=== PATIENT | female | born 1930 | race African-American/Black ===

== ENCOUNTER 2016-12-17 19:59 | Emergency (ER) | payer MEDICARE, MEDICAID ==
[2016-12-17] MEDS ORDERED: NORMAL SALINE 1000 ML 500 ML IV ONE (20:24)
--- NOTE | 2016-12-17 20:31 | ER Document Report ---
ED General - General Stated Complaint: FLU SYMPTOMS Mode of Arrival: Medic Information source: Patient, Relative, [facility] Records Notes: 85-year-old female with a history of hypertension presents via EMS for generalized weakness. Family states that patient has been feeling poorly for one day and has been very weak at home. EMS reported fever of 101.4 axillary. Family was unaware that patient was running a fever today. They state that she has had a mild cough but has not had any vomiting or diarrhea. In fact she has been constipated for the last 4 or 5 days. Patient states that she has had no dysuria. She states that she has no current pain. She just does not feel well. No known sick contacts or recent travel. TRAVEL OUTSIDE OF THE [place] IN LAST 30 DAYS: No - Related Data Allergies/Adverse Reactions: Penicillins Allergy (Verified 12/10/15 09:43) Sulfa (Sulfonamide Antibiotics) Allergy (Verified 12/10/15 09:43) aspirin [Aspirin] Adverse Reaction (Verified 12/10/15 09:43) Past Medical History - General Information source: Relative, [facility] Records - Social History Smoking Status: Unknown if Ever Smoked Family History: Reviewed & Not Pertinent - Past Medical History Cardiac Medical History: Reports: Hx Hypertension Renal/ Medical History: Reports: Hx Kidney Stones Musculoskeltal Medical History: Reports Hx Arthritis Past Surgical History: Reports: Hx Orthopedic Surgery - Immunizations Hx Diphtheria, Pertussis, Tetanus Vaccination: Yes Review of Systems - Review of Systems Notes: Review of symptoms limited secondary to clinical status. REVIEW OF SYSTEMS: CONSTITUTIONAL : Fever and chills and generalized weakness EENT: Denies eye, ear, throat, or mouth pain or symptoms. Denies nasal or sinus congestion. CARDIOVASCULAR: Denies chest pain. RESPIRATORY: Mild cough today as per history of present illness. Denies shortness of breath, difficulty breathing, or wheezing. GASTROINTESTINAL: Denies abdominal pain. Denies nausea, vomiting, or diarrhea. Patient has been constipated. GENITOURINARY: Denies difficulty urinating, painful urination, burning, frequency MUSCULOSKELETAL: Denies joint pain or swelling. SKIN: Denies rash or skin lesions. HEMATOLOGIC : Denies easy bruising or bleeding. LYMPHATIC: Denies swollen, enlarged glands. NEUROLOGICAL: Denies headache. PSYCHIATRIC: Denies anxiety or stress or depression. ALL OTHER SYSTEMS REVIEWED AND NEGATIVE. Physical Exam - Vital signs Vitals: Resp BP Pulse Ox 17 144/74 H 99 12/17/16 20:11 12/17/16 20:11 12/17/16 20:11 Vital signs per EMS: Temperature 101.4 axillary, pressure 148/96, heart rate 94 , respirations 16, pulse ox 100% on 2 L nasal cannula. - Notes Notes: PHYSICAL EXAMINATION: GENERAL: Frail, elderly, cachectic female who is ill-appearing. She is alert and conversant in a very soft voice. HEAD: Atraumatic, normocephalic. EYES: Pupils equal round and reactive to light, extraocular movements intact, sclera anicteric, conjunctiva are normal. ENT: nares patent, oropharynx clear without exudates. Mucous membranes somewhat tacky. NECK: Normal range of motion, supple LUNGS: Decreased bibasilar breath sounds with crackles noted in the right base. No wheezes HEART: Regular rate and rhythm without murmurs ABDOMEN: Soft, nontender, normoactive bowel sounds. No guarding, no rebound. No masses appreciated. EXTREMITIES: Normal range of motion, no pitting or edema. No cyanosis. NEUROLOGICAL: Cranial nerves grossly intact. Moves all 4 extremities and strength intact and symmetric bilaterally PSYCH: Normal mood, normal affect. SKIN: Warm, Dry, normal turgor, no rashes or lesions noted. Course - Re-evaluation Re-evalutation: 12/17/16 22:50 Patient labs are reassuring. Patient is reassessed and has normal vital signs. She is alert and conversant. Her family was in the room states that she is at her baseline mental status at this time. They state that she looks much better than she did earlier today. Patient tells me that she has no pain, she is breathing well, and she wants to go home. She does have caregivers with her 24 hours a day. Given her fever along with some mild cough will prescribe her doxycycline to cover for possible pneumonia, however her chest x-ray at this time is negative. Discussed with the patient's family that she needs to follow up with her primary care physician on Monday and they are agreeable to do so. Should return precautions were discussed. All questions answered. - Vital Signs Vital signs: Temp Pulse Resp BP Pulse Ox 97.8 F 16 138/67 H 96 12/17/16 23:12 12/17/16 23:00 12/17/16 23:00 12/17/16 23:00 - Laboratory Result Diagrams: 12/17/16 20:22 12/17/16 20:22 Laboratory results interpreted by me: 12/17/16 12/17/16 12/17/16 20:22 20:22 20:39 RBC 3.47 L Hgb 9.1 L Hct 29.1 L MCH 26.4 L MCHC 31.5 L RDW 16.9 H Seg Neutrophils % 82.9 H Lymphocytes % 8.4 L VBG pH Carbon Dioxide 31 H Glucose 128 H POC Glucose 125 H Albumin 2.8 L Urine Urobilinogen 12/17/16 12/17/16 20:40 20:55 RBC Hgb Hct MCH MCHC RDW Seg Neutrophils % Lymphocytes % VBG pH 7.45 H Carbon Dioxide Glucose POC Glucose Albumin Urine Urobilinogen 4.0 H Discharge - Discharge Clinical Impression: Febrile illness, acute, Cough, Influenza-like illness Anemia Qualifiers: Anemia type: unspecified type Qualified Code(s): D64.9 - Anemia, unspecified Condition: Stable Disposition: HOME, SELF-CARE Additional Instructions: FEVER: Fever is the body's reaction to infection. Fever can also occur with illnesses that create fever-producing substances in the body. By itself, fever is not harmful. It helps the body fight invading germs. We are more concerned with: (1) What's causing the fever? (2) How can we keep you more comfortable until the fever goes away? Early in an illness, symptoms are often so vague that a diagnosis can't be made. If the doctor hasn't identified a clear cause for your fever, you will probably develop new symptoms within the next two days. Contact the doctor if you develop severe worsening headache, rash, chest pain, cough with yellow or green sputum, difficulty breathing, abdominal pain, or other new symptoms. There is no reason to treat a fever if you're comfortable. If the fever is causing aches, headache, and fatigue, you can treat it with ibuprofen (Advil , Nuprin, etc) or acetaminophen (Tylenol). Follow the directions on the bottle. Get plenty of liquids (three quarts per day). Rest. Physical work or sports will raise the temperature higher and make you feel much worse. Dress lightly. If you're chilling, this means the temperature is trying to go higher. Take ibuprofen or acetaminophen. When you feel sweaty and "feverish" the temperature is coming down. If the fever doesn't go away within two days or if you become more ill, call the doctor or return at once for re-examination. VIRAL SYNDROME: The physician has diagnosed a likely viral infection. Viruses not only cause "colds," but can cause many different symptoms including generalized aching, fever, headache, cough, diarrhea, nausea, vomiting, and fatigue. The treatment, for the most part, is simply relief of symptoms. This means that antibiotics are usually not given. Rest, fluids, pain medications and, occasionally, medication for the specific symptoms that are most bothersome will be prescribed. Use good handwashing to avoid passing the virus to others. Shared toys should be cleaned with disinfectant. Clean the toilets, sinks, and counter surfaces in bathrooms. Launder clothing in hot water. Contact the physician if you develop any new or unusual symptoms such as severe headache, stiff neck, high fever, chest pain, productive cough, or shortness of breath. You should be rechecked if you don't see marked improvement within seven to 10 days. USE OF ACETAMINOPHEN (Tylenol): Acetaminophen may be taken for pain relief or fever control. It's much safer than aspirin, offering a wider range of "safe" dosages. It is safe during . Some brand names are Tylenol, Panadol, Datril, Anacin 3, Tempra, and Liquiprin. Acetaminophen can be repeated every four hours. The following are maximum recommended dosages: WEIGHT Dose Drops Elixir Chewable( 80mg) (LBS.) drprs=droppers tsp=teaspoon 6 40 mg 0.4 ml (1/2) 6-11 80 mg 0.8 ml (full) tsp 1 tab 12-16 120 mg 1 1/2 drprs 3/4 tsp 1 1/2 tabs 17-23 160 mg 2 drprs 1 tsp 2 tabs 24-30 240 mg 3 drprs 1 1/2 tsp 3 tabs 30-35 320 mg 2 tsp 4 tabs 36-41 360 mg 2 1/4 tsp 4 1/2 tabs 42-47 400 mg 2 1/2 tsp 5 tabs 48-53 480 mg 3 tsp 6 tabs 54-59 520 mg 3 1/4 tsp 6 1/2 tabs 60-64 560 mg 3 1/2 tsp 7 tabs 65-70 600 mg 3 3/4 tsp 7 1/2 tabs 71-76 640 mg 4 tsp 8 tabs 77-82 720 mg 4 1/2 tsp 9 tabs 83-88 800 mg 5 tsp 10 tabs >89 pounds or adults 650 mg to 900 mg Acetaminophen can be repeated every four hours. Maximum dose not to exceed 4000 mg a day. These maximum recommended dosages are slightly higher than the dosages written on the product container, but these dosages are very safe and below the toxic dosage for acetaminophen. FOLLOW-UP CARE: If you have been referred to a physician for follow-up care, call the physician s office for an appointment as you were instructed or within the next two days. If you experience worsening or a significant change in your symptoms, notify the physician immediately or return to the Emergency Department at any time for re-evaluation. Rest and drink fluids. Take your antibiotics as instructed. Please follow-up with your primary care physician on Monday. Return to the emergency department for any worsening symptoms or concerns. Prescriptions: Doxycycline Hyclate 100 mg PO BID #20 capsule Referrals: NATALIA CHANDRA, FRANCISCAC [Primary Care Provider] - Follow up as needed
[2016-12-17 20:38] LABS: ABSOLUTE LYMPHOCYTES (AUTO) 0.6 10^3/uL (0.5-4.7); ABSOLUTE MONOCYTES (AUTO) 0.5 10^3/uL (0.1-1.4); ABSOLUTE NEUT (AUTO) 5.6 10^3/uL (1.7-8.2); BASOPHILS % (AUTO) 0.5 % (0-2); EOSINOPHILS % (AUTO) 0.6 % (0-6); HEMATOCRIT 29.1 % (36.0-47.0); HEMOGLOBIN 9.1 g/dL (12.0-15.5); HGB HCT DIFFERENCE -1.8; LYMPHOCYTES % (AUTO) 8.4 % (13-45); MEAN CORPUSCULAR HEMOGLOBIN 26.4 pg (27.0-33.4); MEAN CORPUSCULAR HGB CONC 31.5 g/dL (32.0-36.0); MEAN CORPUSCULAR VOLUME 84 fl (80-97); MONOCYTES % (AUTO) 7.6 % (3-13); RED BLOOD COUNT 3.47 10^6/uL (3.72-5.28); RED CELL DISTRIBUTION WIDTH 16.9 % (11.5-14.0); SEGMENTED NEUTROPHILS % (AUTO) 82.9 % (42-78); WHITE BLOOD COUNT 6.7 10^3/uL (4.0-10.5)
[2016-12-17 20:46] LABS: PROTHROMBIN TIME 14.2 SEC (11.4-15.4)
[2016-12-17 20:51] LABS: VENOUS BLOOD BASE EXCESS 3.3 mmol/L; VENOUS BLOOD HCO3 27.7 mmol/L (20-32); VENOUS BLOOD PCO2 41.1 mmHg (35-63); VENOUS BLOOD PH 7.45 (7.30-7.42)
[2016-12-17 21:03] LABS: ALANINE AMINOTRANSFERASE 14 U/L (9-52); ALBUMIN 2.8 g/dL (3.5-5.0); ALKALINE PHOSPHATASE 72 U/L (38-126); ANION GAP 8 (5-19); ASPARTATE AMINO TRANSFERASE 30 U/L (14-36); BILIRUBIN,TOTAL 0.6 mg/dL (0.2-1.3); BLOOD UREA NITROGEN 13 mg/dL (7-20); CALCIUM 9.5 mg/dL (8.4-10.2); CARBON DIOXIDE 31 mmol/L (22-30); CHLORIDE 100 mmol/L (98-107); CREATININE RESULT 0.62 mg/dL (0.52-1.25); GLUCOSE 128 mg/dL (75-110); POTASSIUM 3.7 mmol/L (3.6-5.0); SODIUM 138.6 mmol/L (137-145); TOTAL PROTEIN 6.6 g/dL (6.3-8.2)
[2016-12-17 21:15] LABS: APPEARANCE,URINE CLEAR; BILIRUBIN,URINE NEGATIVE (NEGATIVE); GLUCOSE, URINE NEGATIVE (NEGATIVE); KETONES,URINE NEGATIVE (NEGATIVE); LEUKOCYTE ESTERASE,URINE NEGATIVE (NEGATIVE); NITRITE,URINE NEGATIVE (NEGATIVE); PROTEIN,URINE NEGATIVE (NEGATIVE); URINE SPECIFIC GRAVITY 1.013
[2016-12-17 23:08] VITALS: BP 138/67
--- NOTE | 2016-12-18 17:41 | EKG REPORT ---
SEVERITY:- ABNORMAL ECG - SINUS RHYTHM CONSIDER LEFT VENTRICULAR HYPERTROPHY : Confirmed by: Dayna Montes MD 18-Dec-2016 17:41:04
== END 2016-12-17 23:18 | disposition home or self-care (01) ==
LOC: ER 19:59
DX: R05 Cough (principal); R50.9 Fever, unspecified; R53.1 Weakness; D64.9 Anemia, unspecified; I10 Essential (primary) hypertension; Z88.0 Allergy status to penicillin; Z88.2 Allergy status to sulfonamides; Z88.6 Allergy status to analgesic agent; Z87.442 Personal history of urinary calculi
CPT/HCPCS: 36415; 51701; 71010; 80053; 81001; 82803; 82962; 83605; 85025; 85610; 87040; 87086; 87804; 93005; 93010; 99284

== ENCOUNTER 2017-01-29 10:28 | Emergency (ER) | payer MEDICARE ==
--- NOTE | 2017-01-29 10:51 | EKG REPORT ---
SEVERITY:- BORDERLINE ECG - SINUS RHYTHM BORDERLINE T ABNORMALITIES, ANT-LAT LEADS : Confirmed by: Natasha Garcia 29-Jan-2017 10:50:04
--- NOTE | 2017-01-29 11:02 | ER Document Report ---
ED General - General Chief Complaint: Hand Pain Stated Complaint: WEAKNESS, HAND SWELLING Mode of Arrival: Medic Information source: Patient, Relative, [facility] Personnel Notes: 86 yr old female with dementia presents with fmaily with ocncerns of right hand swelling over the past week. 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 family notes she has progressively been weaker over the past year. pt diagnosed with uti recently, pt not taking her cipro TRAVEL OUTSIDE OF THE [place] IN LAST 30 DAYS: No - HPI Onset: Just prior to arrival Onset/Duration: Sudden Quality of pain: No pain Severity: None Pain Level: Denies Associated symptoms: None Exacerbated by: Denies Relieved by: Denies Similar symptoms previously: Yes Recently seen / treated by doctor: Yes - Related Data Allergies/Adverse Reactions: Penicillins Allergy (Verified 12/10/15 09:43) Sulfa (Sulfonamide Antibiotics) Allergy (Verified 12/10/15 09:43) aspirin [Aspirin] Adverse Reaction (Verified 12/10/15 09:43) Past Medical History - Social History Smoking Status: Never Smoker Cigarette use (# per day): No Chew tobacco use (# tins/day): No Smoking Education Provided: No Family History: Reviewed & Not Pertinent - Past Medical History Cardiac Medical History: Reports: Hx Hypertension Renal/ Medical History: Reports: Hx Kidney Stones. Denies: Hx Peritoneal Dialysis GI Medical History: Reports: Hx Gastroesophageal Reflux Disease Musculoskeltal Medical History: Reports Hx Arthritis Past Surgical History: Reports: Hx Orthopedic Surgery - Immunizations Hx Diphtheria, Pertussis, Tetanus Vaccination: Yes Review of Systems - Review of Systems Notes: REVIEW OF SYSTEMS: CONSTITUTIONAL : Denies fever, chills, or sweats. Denies recent illness. EENT: Denies eye, ear, throat, or mouth pain or symptoms. Denies nasal or sinus congestion or discharge. Denies throat, tongue, or mouth swelling or difficulty swallowing. CARDIOVASCULAR: Denies chest pain. Denies palpitations or racing or irregular heart beat. Denies ankle edema. RESPIRATORY: Denies cough, cold, or chest congestion. Denies shortness of breath, difficulty breathing, or wheezing. GASTROINTESTINAL: Denies abdominal pain or distention. Denies nausea, vomiting , or diarrhea. Denies blood in vomitus, stools, or per rectum. Denies black, tarry stools. Denies constipation. GENITOURINARY: Denies difficulty urinating, painful urination, burning, frequency, blood in urine, or discharge. FEMALE GENITOURINARY: Denies vaginal bleeding, heavy or abnormal periods, irregular periods. Denies vaginal discharge or odor. MUSCULOSKELETAL: admit to right hand swelling SKIN: Denies rash, lesions or sores. HEMATOLOGIC : Denies easy bruising or bleeding. LYMPHATIC: Denies swollen, enlarged glands. NEUROLOGICAL: weakness chronic PSYCHIATRIC: Denies anxiety or stress. Denies depression, suicidal ideation, or homicidal ideation. ALL OTHER SYSTEMS REVIEWED AND NEGATIVE. Dictation was performed using [employer] voice recognition software PHYSICAL EXAMINATION: GENERAL: Cachectic female no acute distress HEAD: Atraumatic, normocephalic. EYES: Pupils equal round and reactive to light, extraocular movements intact, conjunctiva are normal. ENT: Nares patent, oropharynx clear without exudates. Moist mucous membranes. NECK: Normal range of motion, supple without lymphadenopathy LUNGS: Breath sounds clear to auscultation bilaterally and equal. No wheezes rales or rhonchi. HEART: Regular rate and rhythm without murmurs ABDOMEN: Soft, nontender, nondistended abdomen. No guarding, no rebound. No masses appreciated. Female : deferred Musculoskeletal: Right-sided deficits right hand mild edema no erythema NEUROLOGICAL: Right-sided deficits chronic SKIN: stage 2 decub Physical Exam - Vital signs Vitals: Temp Pulse Resp BP Pulse Ox 98.1 F 85 18 140/69 H 95 01/29/17 10:47 01/29/17 10:47 01/29/17 10:47 01/29/17 10:47 01/29/17 10:47 Course - Re-evaluation Re-evalutation: 01/29/17 11:02 01/29/17 12:52 Doppler was negative, lab work note no significant abnormality patient is on antibiotics and family requests ciprofloxacin liquid. I will write a prescription. Otherwise patient looks well is in no distress. I will discharge back to home After performing a Medical Screening Examination, I estimate there is LOW risk for ACUTE CORONARY SYNDROME, RESPIRATORY FAILURE, SEPSIS OR MENINGITIS, thus I consider the discharge disposition reasonable. The patients family and I have discussed the diagnosis and risks, and we agree with discharging home with close follow-up. We also discussed returning to the Emergency Department immediately if new or worsening symptoms occur. We have discussed the symptoms which are most concerning (e.g., changing or worsening pain, trouble swallowing or breathing, neck stiffness, fever) that necessitate immediate return. - Vital Signs Vital signs: Temp Pulse Resp BP Pulse Ox 98.1 F 85 18 140/69 H 95 01/29/17 10:47 01/29/17 10:47 01/29/17 10:47 01/29/17 10:47 01/29/17 10:47 - Laboratory Result Diagrams: 01/29/17 11:30 01/29/17 11:30 Laboratory results interpreted by me: 01/29/17 01/29/17 01/29/17 11:30 11:30 11:30 Hgb 10.0 L Hct 31.2 L MCH 26.6 L RDW 18.1 H Plt Count 566 H Seg Neutrophils % 80.1 H Lymphocytes % 11.4 L VBG HCO3 34.4 H Chloride 97 L Direct Bilirubin 0.5 H AST 41 H Albumin 2.7 L Urine Ketones Ur Leukocyte Esterase 01/29/17 11:59 Hgb Hct MCH RDW Plt Count Seg Neutrophils % Lymphocytes % VBG HCO3 Chloride Direct Bilirubin AST Albumin Urine Ketones 20 H Ur Leukocyte Esterase SMALL H - Diagnostic Test Radiology reviewed: Image reviewed, Reports reviewed Discharge - Discharge Clinical Impression: Swelling of right hand Decubital ulcer Qualifiers: Pressure ulcer location: sacral region Pressure ulcer stage: stage 2 Qualified Code(s): L89.152 - Pressure ulcer of sacral region, stage 2 Condition: Stable Disposition: HOME, SELF-CARE Additional Instructions: Follow up with your physician tomorrow for further care or return to the ED IMMEDIATELY if symptoms worsen or new concerns occur. If you cannot afford to follow up with your primary care physician a list of low cost clinics have been provided at the end of your discharge papers as well. Referrals: LINO ALEXANDER MD [Primary Care Provider] - Follow up tomorrow
[2017-01-29 11:50] LABS: VENOUS BLOOD BASE EXCESS 7.2 mmol/L; VENOUS BLOOD HCO3 34.4 mmol/L (20-32); VENOUS BLOOD PCO2 60.8 mmHg (35-63); VENOUS BLOOD PH 7.37 (7.30-7.42)
[2017-01-29 11:53] LABS: ABSOLUTE LYMPHOCYTES (AUTO) 0.8 10^3/uL (0.5-4.7); ABSOLUTE MONOCYTES (AUTO) 0.5 10^3/uL (0.1-1.4); ABSOLUTE NEUT (AUTO) 5.5 10^3/uL (1.7-8.2); BASOPHILS % (AUTO) 0.6 % (0-2); EOSINOPHILS % (AUTO) 0.2 % (0-6); HEMATOCRIT 31.2 % (36.0-47.0); HGB HCT DIFFERENCE -1.2; LYMPHOCYTES % (AUTO) 11.4 % (13-45); MEAN CORPUSCULAR HEMOGLOBIN 26.6 pg (27.0-33.4); MEAN CORPUSCULAR HGB CONC 32.1 g/dL (32.0-36.0); MEAN CORPUSCULAR VOLUME 83 fl (80-97); MONOCYTES % (AUTO) 7.7 % (3-13); RED BLOOD COUNT 3.77 10^6/uL (3.72-5.28); RED CELL DISTRIBUTION WIDTH 18.1 % (11.5-14.0); SEGMENTED NEUTROPHILS % (AUTO) 80.1 % (42-78); WHITE BLOOD COUNT 6.9 10^3/uL (4.0-10.5)
[2017-01-29 12:02] LABS: PROTHROMBIN TIME 13.5 SEC (11.4-15.4)
[2017-01-29 12:07] LABS: ALANINE AMINOTRANSFERASE 25 U/L (9-52); ALBUMIN 2.7 g/dL (3.5-5.0); ALKALINE PHOSPHATASE 85 U/L (38-126); ANION GAP 12 (5-19); ASPARTATE AMINO TRANSFERASE 41 U/L (14-36); BILIRUBIN,DIRECT 0.5 mg/dL (0.0-0.4); BILIRUBIN,TOTAL 0.7 mg/dL (0.2-1.3); BLOOD UREA NITROGEN 14 mg/dL (7-20); CALCIUM 10.2 mg/dL (8.4-10.2); CARBON DIOXIDE 29 mmol/L (22-30); CHLORIDE 97 mmol/L (98-107); CREATININE RESULT 0.53 mg/dL (0.52-1.25); GLUCOSE 103 mg/dL (75-110); POTASSIUM 3.7 mmol/L (3.6-5.0); SODIUM 138.1 mmol/L (137-145); TOTAL PROTEIN 6.7 g/dL (6.3-8.2)
[2017-01-29 12:14] LABS: APPEARANCE,URINE SLIGHTLY-CLOUDY; BILIRUBIN,URINE NEGATIVE (NEGATIVE); CALCIUM OXALATE CRYSTALS,URINE RARE /HPF; GLUCOSE, URINE NEGATIVE (NEGATIVE); KETONES,URINE 20 mg/dL (NEGATIVE); LEUKOCYTE ESTERASE,URINE SMALL (NEGATIVE); NITRITE,URINE NEGATIVE (NEGATIVE); PROTEIN,URINE NEGATIVE (NEGATIVE); URINE SPECIFIC GRAVITY 1.016; UROBILINOGEN,URINE NEGATIVE mg/dL (<2.0)
[2017-01-29 13:38] VITALS: BP 140/75
== END 2017-01-29 13:41 | disposition home or self-care (01) ==
LOC: ER 10:28
DX: M79.89 Other specified soft tissue disorders (principal); L89.152 Pressure ulcer of sacral region, stage 2; I69.351 Hemiplegia and hemiparesis following cerebral infarction affecting right dominant side; I10 Essential (primary) hypertension; Z88.0 Allergy status to penicillin; Z88.2 Allergy status to sulfonamides
CPT/HCPCS: 36415; 51702; 71010; 80053; 81001; 82803; 83605; 85025; 85610; 87040; 87086; 93005; 93010; 93971; 99285

== ENCOUNTER 2017-02-18 17:13 | Emergency (ER) | payer MEDICARE, MEDICAID ==
[2017-02-18 20:05] LABS: APPEARANCE,URINE SLIGHTLY-CLOUDY; BILIRUBIN,URINE NEGATIVE (NEGATIVE); GLUCOSE, URINE NEGATIVE (NEGATIVE); KETONES,URINE 20 mg/dL (NEGATIVE); LEUKOCYTE ESTERASE,URINE TRACE (NEGATIVE); NITRITE,URINE NEGATIVE (NEGATIVE); PROTEIN,URINE NEGATIVE (NEGATIVE); UROBILINOGEN,URINE NEGATIVE mg/dL (<2.0)
[2017-02-18 20:34] LABS: ABSOLUTE BASOPHILS # (AUTO) 0.1 10^3/uL (0.0-0.2); ABSOLUTE NEUT (AUTO) 8.1 10^3/uL (1.7-8.2); BASOPHILS % (AUTO) 1.2 % (0-2); EOSINOPHILS % (AUTO) 0.1 % (0-6); HEMATOCRIT 30.5 % (36.0-47.0); HEMOGLOBIN 9.3 g/dL (12.0-15.5); HGB HCT DIFFERENCE -2.6; LYMPHOCYTES % (AUTO) 9.5 % (13-45); MEAN CORPUSCULAR HEMOGLOBIN 25.5 pg (27.0-33.4); MEAN CORPUSCULAR HGB CONC 30.3 g/dL (32.0-36.0); MEAN CORPUSCULAR VOLUME 84 fl (80-97); RED BLOOD COUNT 3.63 10^6/uL (3.72-5.28); RED CELL DISTRIBUTION WIDTH 18.5 % (11.5-14.0); SEGMENTED NEUTROPHILS % (AUTO) 79.2 % (42-78); WHITE BLOOD COUNT 10.2 10^3/uL (4.0-10.5)
--- NOTE | 2017-02-18 20:50 | ER Document Report ---
ED General - General Chief Complaint: Altered Mental Status Stated Complaint: ALTERED MENTAL STATUS Mode of Arrival: Wheelchair Information source: Relative Notes: This is an 86-year-old female with multiple medical problems who lives with her family and presents via EMS for an episode earlier of altered mental status. Family states that when patient awoke from a nap earlier this afternoon, she was not as responsive as usual. The family are poor historians as well and they are unsure how long this episode of decreased responsiveness this lasted. However, upon arrival to the ER patient is alert and at her baseline mental status. Family states that she has not had any recent fevers or chills. She has not been coughing and congested. She has not had vomiting or diarrhea. They are concerned that perhaps she has a urinary tract infection as she has had similar episodes with those in the past. Patient denies any complaints at this time. She says she has no pain and that she feels well. TRAVEL OUTSIDE OF THE [place] IN LAST 30 DAYS: No - Related Data Allergies/Adverse Reactions: Penicillins Allergy (Verified 12/10/15 09:43) Sulfa (Sulfonamide Antibiotics) Allergy (Verified 12/10/15 09:43) aspirin [Aspirin] Adverse Reaction (Verified 12/10/15 09:43) Past Medical History - General Information source: Relative - Social History Smoking Status: Never Smoker Chew tobacco use (# tins/day): No Frequency of alcohol use: None Drug Abuse: None Family History: Reviewed & Not Pertinent - Past Medical History Cardiac Medical History: Reports: Hx Hypercholesterolemia, Hx Hypertension Renal/ Medical History: Reports: Hx Kidney Stones. Denies: Hx Peritoneal Dialysis GI Medical History: Reports: Hx Gastroesophageal Reflux Disease Musculoskeltal Medical History: Reports Hx Arthritis Past Surgical History: Reports: Hx Orthopedic Surgery - R hip - Immunizations Hx Diphtheria, Pertussis, Tetanus Vaccination: Yes Review of Systems - Review of Systems Constitutional: See HPI. denies: Chills, Fever EENT: No symptoms reported Cardiovascular: No symptoms reported. denies: Chest pain, Dyspnea Respiratory: No symptoms reported. denies: Cough, Hurts to breathe, Short of breath Gastrointestinal: No symptoms reported. denies: Abdomen distended, Abdominal pain, Diarrhea, Vomiting Genitourinary: No symptoms reported Musculoskeletal: No symptoms reported Skin: Other - pressure sore on buttocks that is being cared for by home health Neurological/Psychological: See HPI Physical Exam - Vital signs Vitals: Pulse Ox 92 02/18/17 17:20 - Notes Notes: PHYSICAL EXAMINATION: GENERAL: Thin, cachetic, chronically ill appearing elderly female who is alert and interactive, nods her head to answer questions, smiles HEAD: Atraumatic, normocephalic. EYES: Pupils equal round and reactive to light, extraocular movements intact, sclera anicteric, conjunctiva are normal. ENT: nares patent, oropharynx clear without exudates. mucous membranes tacky NECK: Normal range of motion, supple without lymphadenopathy LUNGS: Breath sounds clear to auscultation bilaterally and equal. No wheezes rales or rhonchi. HEART: Regular rate and rhythm without murmurs ABDOMEN: Soft, nontender, normoactive bowel sounds. No guarding, no rebound. No masses appreciated. EXTREMITIES: Normal range of motion, no pitting or edema. NEUROLOGICAL: Cranial nerves grossly intact. Weakness to RUE which is baseline for patient per family. Otherwise grossly intact. PSYCH: Normal mood, normal affect. SKIN: Warm, Dry, normal turgor, no rashes or lesions noted. Course - Re-evaluation Re-evalutation: 02/18/17 22:00 Patient has been evaluated multiple times in the emergency department. She has remained at her baseline mental status. She is alert and able to nod her head yes or no and sometimes will whisper answers to my questions. She denies any pain. She wanted like to go home. Her family is here at the bedside and they' re comfortable taking her home. We discussed that at this time her labs and exam initially that she is dehydrated. She is given IV fluids in the ER and she will follow closely with her primary care physician. Strict return precautions were discussed. Family is very comfortable with this plan and would like to take the patient home tonight. - Vital Signs Vital signs: Temp Pulse Resp BP Pulse Ox 10 L 145/70 H 100 02/18/17 20:01 02/18/17 20:01 02/18/17 20:01 - Laboratory Result Diagrams: 02/18/17 20:08 02/18/17 21:10 Laboratory results interpreted by me: 02/18/17 02/18/17 02/18/17 19:55 20:08 21:10 RBC 3.63 L Hgb 9.3 L Hct 30.5 L MCH 25.5 L MCHC 30.3 L RDW 18.5 H Seg Neutrophils % 79.2 H Lymphocytes % 9.5 L Carbon Dioxide 36 H BUN 24 H AST 38 H Creatine Kinase < 20 L Total Protein 6.0 L Albumin 2.4 L Urine Ketones 20 H Ur Leukocyte Esterase TRACE H Discharge - Discharge Clinical Impression: Dehydration, Chronic anemia Condition: Stable Disposition: HOME, SELF-CARE Additional Instructions: Dehydration Dehydration can result from vomiting or diarrhea, fever, or decreased intake of fluids. If severe, hospitalization and intravenous fluids may be required. Most cases are treated at home with fluids by mouth. For the next 24 hours, drink lots of clear fluids. In mild cases, this can be soda pop or sports drinks. For more severe dehydration, the doctor may recommend special fluids such as Pedialyte or Lytren. Try to get three liters ( 3 quarts) of fluid per day. If vomiting occurs, continue to drink the fluids frequently (every 15 to 20 minutes), but in small amounts (one or two ounces). Depending on the type of dehydration, the doctor may prescribe antinausea medicine or potassium replacements. Call the doctor or return for re-examination if you become progressively weak, vomit repeatedly, or have other new symptoms. As discussed, follow up with your PCP next week. Keep your appointment with Oncology Monday as scheduled (for chronic anemia). Encourage oral fluids at home. Return to the ER for fevers, chest pain, breathing trouble, vomiting, or any worsening symptoms or concerns.
[2017-02-18 21:45] LABS: ALANINE AMINOTRANSFERASE 15 U/L (9-52); ALBUMIN 2.4 g/dL (3.5-5.0); ALKALINE PHOSPHATASE 84 U/L (38-126); ANION GAP 8 (5-19); ASPARTATE AMINO TRANSFERASE 38 U/L (14-36); BILIRUBIN,DIRECT 0.3 mg/dL (0.0-0.4); BILIRUBIN,TOTAL 0.6 mg/dL (0.2-1.3); BLOOD UREA NITROGEN 24 mg/dL (7-20); CALCIUM 10.2 mg/dL (8.4-10.2); CARBON DIOXIDE 36 mmol/L (22-30); CHLORIDE 98 mmol/L (98-107); GLUCOSE 88 mg/dL (75-110); POTASSIUM 3.8 mmol/L (3.6-5.0); SODIUM 141.6 mmol/L (137-145)
[2017-02-18 21:46] LABS: CREATINE KINASE < 20 U/L (30-135)
[2017-02-18] MEDS ORDERED: NORMAL SALINE 500 ML IV ONE (21:52)
[2017-02-18 22:48] VITALS: BP 144/69
--- NOTE | 2017-02-19 10:19 | EKG REPORT ---
SEVERITY:- ABNORMAL ECG - SINUS RHYTHM ATRIAL PREMATURE COMPLEX CONSIDER LEFT VENTRICULAR HYPERTROPHY : Confirmed by: Natasha Garcia 19-Feb-2017 10:18:34
== END 2017-02-18 22:50 | disposition home or self-care (01) ==
LOC: ER 17:13
DX: E86.0 Dehydration (principal); D64.9 Anemia, unspecified; R41.82 Altered mental status, unspecified; R05 Cough; R09.81 Nasal congestion
CPT/HCPCS: 36415; 51701; 70450; 71010; 80053; 81001; 82550; 85025; 93005; 93010; 99285

== ENCOUNTER 2017-02-26 09:20 | Emergency (ER) | payer MEDICARE, MEDICAID ==
--- NOTE | 2017-02-26 10:38 | ER Document Report ---
ED General - General Chief Complaint: Urinary Problem Stated Complaint: URINATION CONCERNS Mode of Arrival: Wheelchair Information source: Patient, Relative Notes: 86 yr old female presents with families concerns of decreased urination. Pt last urinated monday night. family denies any fevers or chills, states she has been eating and drinking well. TRAVEL OUTSIDE OF THE [place] IN LAST 30 DAYS: No - HPI Onset: Other - 2 days Onset/Duration: Persistent Quality of pain: No pain Severity: Mild Pain Level: Denies Associated symptoms: Other Exacerbated by: Denies Relieved by: Denies Similar symptoms previously: Yes Recently seen / treated by doctor: Yes - Related Data Allergies/Adverse Reactions: Penicillins Allergy (Verified 02/26/17 09:31) Sulfa (Sulfonamide Antibiotics) Allergy (Verified 02/26/17 09:31) aspirin [Aspirin] Adverse Reaction (Verified 02/26/17 09:31) Past Medical History - Social History Smoking Status: Former Smoker Cigarette use (# per day): No Chew tobacco use (# tins/day): No Smoking Education Provided: No Frequency of alcohol use: None Drug Abuse: None Family History: Reviewed & Not Pertinent Patient has suicidal ideation: No Patient has homicidal ideation: No - Past Medical History Cardiac Medical History: Reports: Hx Hypercholesterolemia, Hx Hypertension Renal/ Medical History: Reports: Hx Kidney Stones. Denies: Hx Peritoneal Dialysis GI Medical History: Reports: Hx Gastroesophageal Reflux Disease Musculoskeltal Medical History: Reports Hx Arthritis Past Surgical History: Reports: Hx Orthopedic Surgery - R hip, L hip - Immunizations Hx Diphtheria, Pertussis, Tetanus Vaccination: Yes Review of Systems - Review of Systems Notes: PHYSICAL EXAMINATION: GENERAL: Cachectic elderly female no significant distress HEAD: Atraumatic, normocephalic. EYES: Pupils equal round and reactive to light, extraocular movements intact, conjunctiva are normal. ENT: Nares patent, oropharynx clear without exudates. Moist mucous membranes. NECK: Normal range of motion, supple without lymphadenopathy LUNGS: Breath sounds clear to auscultation bilaterally and equal. No wheezes rales or rhonchi. HEART: Regular rate and rhythm without murmurs ABDOMEN: Soft, nontender, nondistended abdomen. No guarding, no rebound. No masses appreciated. Female : deferred Musculoskeletal: Normal range of motion, no pitting or edema. No cyanosis. NEUROLOGICAL: Cranial nerves grossly intact. Normal speech, normal gait. Normal sensory, motor exams PSYCH: Normal mood, normal affect. SKIN: Warm, Dry, normal turgor, no rashes or lesions noted. Physical Exam - Vital signs Vitals: Pulse Resp BP 101 H 16 93/76 L 02/26/17 09:27 02/26/17 09:27 02/26/17 09:27 Course - Re-evaluation Re-evalutation: 02/26/17 16:25 A Vines was placed 200 mL were removed, no obvious sign of infection. Patient vital signs otherwise stable. Her B1 is noted to be elevated, I believe she is dehydrated this would be the cause of why she has not been urinating well. Family denies any vomiting of blood or dark stools I have explained to the family patient's poor prognosis they state the understand. I will treat her with IV fluids hydrate her and follow up with primary care physician tomorrow Family's very happy with this plan and appreciative of the care After performing a Medical Screening Examination, I estimate there is LOW risk for ACUTE CORONARY SYNDROME, RESPIRATORY FAILURE, SEPSIS OR MENINGITIS, thus I consider the discharge disposition reasonable. I have reevaluated this patient multiple times and no significant life threatening changes are noted. The patient and her family and I have discussed the diagnosis and risks, and we agree with discharging home with close follow-up. We also discussed returning to the Emergency Department immediately if new or worsening symptoms occur. We have discussed the symptoms which are most concerning (e.g., changing or worsening pain, trouble swallowing or breathing, neck stiffness, fever) that necessitate immediate return. - Vital Signs Vital signs: Temp Pulse Resp BP Pulse Ox 97.3 F 91 11 L 146/84 H 100 02/26/17 09:35 02/26/17 10:50 02/26/17 15:02 02/26/17 15:02 02/26/17 10:50 - Laboratory Result Diagrams: 02/26/17 10:10 02/26/17 10:10 Laboratory results interpreted by me: 02/26/17 02/26/17 10:10 10:10 RBC 3.13 L Hgb 8.3 L Hct 26.8 L MCH 26.5 L MCHC 31.0 L RDW 19.1 H Seg Neuts % (Manual) 85 H Lymphocytes % (Manual) 7 L Carbon Dioxide 32 H BUN 33 H Calcium 10.5 H Direct Bilirubin 0.7 H AST 38 H Albumin 2.4 L Discharge - Discharge Clinical Impression: Dehydration Anemia Qualifiers: Anemia type: unspecified type Qualified Code(s): D64.9 - Anemia, unspecified Condition: Stable Disposition: HOME, SELF-CARE Instructions: Dehydration ([facility]) Additional Instructions: Follow up with your physician tomorrow for further care or return to the ED IMMEDIATELY if symptoms worsen or new concerns occur. If you cannot afford to follow up with your primary care physician a list of low cost clinics have been provided at the end of your discharge papers as well.
[2017-02-26 10:52] LABS: HEMATOCRIT 26.8 % (36.0-47.0); HEMOGLOBIN 8.3 g/dL (12.0-15.5); HGB HCT DIFFERENCE -1.9; MEAN CORPUSCULAR HEMOGLOBIN 26.5 pg (27.0-33.4); MEAN CORPUSCULAR VOLUME 86 fl (80-97); RED BLOOD COUNT 3.13 10^6/uL (3.72-5.28); RED CELL DISTRIBUTION WIDTH 19.1 % (11.5-14.0); WHITE BLOOD COUNT 7.6 10^3/uL (4.0-10.5)
[2017-02-26 10:58] LABS: ALANINE AMINOTRANSFERASE 16 U/L (9-52); ALBUMIN 2.4 g/dL (3.5-5.0); ALKALINE PHOSPHATASE 98 U/L (38-126); ANION GAP 10 (5-19); ASPARTATE AMINO TRANSFERASE 38 U/L (14-36); BILIRUBIN,DIRECT 0.7 mg/dL (0.0-0.4); BILIRUBIN,TOTAL 0.9 mg/dL (0.2-1.3); BLOOD UREA NITROGEN 33 mg/dL (7-20); CALCIUM 10.5 mg/dL (8.4-10.2); CARBON DIOXIDE 32 mmol/L (22-30); CHLORIDE 99 mmol/L (98-107); GLUCOSE 87 mg/dL (75-110); POTASSIUM 3.9 mmol/L (3.6-5.0); SODIUM 140.8 mmol/L (137-145); TOTAL PROTEIN 6.4 g/dL (6.3-8.2)
[2017-02-26 11:06] LABS: APPEARANCE,URINE SLIGHTLY-CLOUDY; BILIRUBIN,URINE NEGATIVE (NEGATIVE); GLUCOSE, URINE NEGATIVE (NEGATIVE); KETONES,URINE NEGATIVE (NEGATIVE); LEUKOCYTE ESTERASE,URINE NEGATIVE (NEGATIVE); NITRITE,URINE NEGATIVE (NEGATIVE); PROTEIN,URINE NEGATIVE (NEGATIVE); UROBILINOGEN,URINE NEGATIVE mg/dL (<2.0)
[2017-02-26 11:10] LABS: BAND NEUTROPHILS % (MANUAL) 4 % (3-5); BASOPHILS % (MANUAL) 0 % (0-2); EOSINOPHILS % (MANUAL) 0 % (0-6); LYMPHOCYTES % (MANUAL) 7 % (13-45); TOTAL CELLS COUNTED 100
[2017-02-26 11:11] LABS: ANISOCYTOSIS 1+; HYPOCHROMASIA 1+; POIKILOCYTOSIS SLIGHT; ROULEAUX SLIGHT; TARGET CELLS SLIGHT
[2017-02-26] MEDS ORDERED: NORMAL SALINE 1000 ML 1,000 ML IV ONE (11:16)
[2017-02-26 15:41] VITALS: BP 146/84
== END 2017-02-26 15:57 | disposition home or self-care (01) ==
LOC: ER 09:20
DX: E86.0 Dehydration (principal); D64.9 Anemia, unspecified; I10 Essential (primary) hypertension; K21.9 Gastro-esophageal reflux disease without esophagitis; Z87.442 Personal history of urinary calculi; Z88.0 Allergy status to penicillin; Z88.2 Allergy status to sulfonamides; Z88.6 Allergy status to analgesic agent
CPT/HCPCS: 99284; 51702; 36415; 85025; 80053; 81001; J7030

== ENCOUNTER 2017-03-07 15:37 | Inpatient (IN) | payer MEDICARE, MEDICAID ==
--- NOTE | 2017-03-07 15:56 | ER Document Report ---
ED General - General Stated Complaint: WEAKNESS Time Seen by Provider: 03/07/17 15:50 Mode of Arrival: Medic Information source: Relative Cannot obtain history due to: Dementia Notes: Nonverbal TRAVEL OUTSIDE OF THE [place] IN LAST 30 DAYS: No - HPI Notes: 86-year-old female chronically ill with increasing weakness and decreasing by mouth intake over 1 month protest leave the last 2-3 days. They are waiting on hospice at home but the patient is not taking any by mouth medications or fluids except a minimal amount last urine output was yesterday evening. She has been chewing on her lower lip and it has been bleeding as well. The patient 's had no other complaints. She is bedbound and they're awaiting on a Elizabet lift. He noted no fevers. Patient appears confused and can give no further history otherwise. - Related Data Allergies/Adverse Reactions: Penicillins Allergy (Verified 02/26/17 09:31) Sulfa (Sulfonamide Antibiotics) Allergy (Verified 02/26/17 09:31) aspirin [Aspirin] Adverse Reaction (Verified 02/26/17 09:31) Past Medical History - Social History Smoking Status: Never Smoker Family History: Reviewed & Not Pertinent - Past Medical History Cardiac Medical History: Reports: Hx Hypercholesterolemia, Hx Hypertension Renal/ Medical History: Reports: Hx Kidney Stones. Denies: Hx Peritoneal Dialysis GI Medical History: Reports: Hx Gastroesophageal Reflux Disease Musculoskeltal Medical History: Reports Hx Arthritis Past Surgical History: Reports: Hx Orthopedic Surgery - R hip, L hip - Immunizations Hx Diphtheria, Pertussis, Tetanus Vaccination: Yes Review of Systems - Review of Systems -: Yes ROS unobtainable due to patient's medical condition - Otherwise as noted per family. Physical Exam - Notes Notes: GENERAL: VS as per nursing doc. extremely cachectic black female with mild increased work of breathing. HEAD: Atraumatic, normocephalic. EYES: Sunken eyes, ENT: Very dry mucosa with some bleeding of the lip and mucosa noted. It does not appear active at the moment.. NECK: No clear adenopathy LUNGS: Coarse with basilar crackles HEART: Regular rate and rhythm systolic murmur noted ABDOMEN: Soft, non-tender, scaphoid BACK: No CVA tenderness. EXTREMITIES: Muscular wasting. NEUROLOGICAL: Will not follow commands except for very weak grout pump operator, nothing obviously focal PSYCH: Nonverbal SKIN: Warm, dry,poor turgor, skin breakdown/decubiti noted Course - Re-evaluation Re-evalutation: 03/07/17 19:28 Patient chemistry showed some mild hypoglycemia and BUN/creatinine ratio consistent with some dehydration. We will continue hydration. She is fairly anemic but I do not see active source of bleeding. She has an extremely large sacral decubiti that probably could use some debridement. Her biggest problem is mostly failure to thrive as a reason for them to consider hospice. Urine does appear somewhat infected we will give her a dose of Rocephin. I'm waiting for the hospitalist to be available for call for admission. 03/07/17 19:49 I spoke with the daughter again who is making healthcare decisions and with the granddaughters in agreement and they continue to wish for the patient to be a full DO NOT RESUSCITATE/DO NOT INTUBATE and requesting patient be set up with hospice which they've been trying to do for a month but unable to apparently get everything set up. I spoke with Dr. Mckeon and he will be admitting the patient to the medical service - Laboratory Result Diagrams: 03/07/17 16:45 03/07/17 16:45 Laboratory results interpreted by me: 03/07/17 03/07/17 03/07/17 16:40 16:45 16:45 RBC 3.09 L Hgb 8.2 L Hct 26.3 L MCH 26.4 L MCHC 31.1 L RDW 19.0 H Seg Neuts % (Manual) 89 H Band Neutrophils % 1 L Lymphocytes % (Manual) 7 L Monocytes % (Manual) 2 L Carbon Dioxide 32 H BUN 34 H Glucose 74 L Calcium 10.6 H Direct Bilirubin 0.5 H AST 42 H Total Protein 6.0 L Albumin 2.3 L Urine Ketones TRACE H Ur Leukocyte Esterase SMALL H - Diagnostic Test Radiology reviewed: Image reviewed, Reports reviewed - Nonacute chest x-ray - EKG Interpretation by Me EKG shows normal: Sinus rhythm Rate: Normal - Heart rate 97 probably more likely a normal sinus rhythm with short MN interval and consideration for PACs, diffuse nonspecific T-wave abnormalities and low voltage noted Discharge - Discharge Clinical Impression: Failure to thrive, Anemia, UTI (urinary tract infection), Decubitus ulcer of sacral area Condition: Poor Disposition: ADMITTED INPATIENT Admitting Provider: Dr. Mckeon Unit Admitted: Medical Floor
[2017-03-07 18:39] LABS: HEMATOCRIT 26.3 % (36.0-47.0); HEMOGLOBIN 8.2 g/dL (12.0-15.5); HGB HCT DIFFERENCE -1.7; MEAN CORPUSCULAR HEMOGLOBIN 26.4 pg (27.0-33.4); MEAN CORPUSCULAR HGB CONC 31.1 g/dL (32.0-36.0); MEAN CORPUSCULAR VOLUME 85 fl (80-97); RED BLOOD COUNT 3.09 10^6/uL (3.72-5.28); WHITE BLOOD COUNT 6.2 10^3/uL (4.0-10.5)
[2017-03-07 18:42] LABS: ALANINE AMINOTRANSFERASE 24 U/L (9-52); ALBUMIN 2.3 g/dL (3.5-5.0); ALKALINE PHOSPHATASE 97 U/L (38-126); ANION GAP 10 (5-19); ASPARTATE AMINO TRANSFERASE 42 U/L (14-36); BILIRUBIN,DIRECT 0.5 mg/dL (0.0-0.4); BILIRUBIN,TOTAL 0.6 mg/dL (0.2-1.3); BLOOD UREA NITROGEN 34 mg/dL (7-20); CALCIUM 10.6 mg/dL (8.4-10.2); CARBON DIOXIDE 32 mmol/L (22-30); CHLORIDE 101 mmol/L (98-107); CREATININE RESULT 0.79 mg/dL (0.52-1.25); GLUCOSE 74 mg/dL (75-110); POTASSIUM 4.1 mmol/L (3.6-5.0); SODIUM 143.3 mmol/L (137-145)
[2017-03-07] MEDS ORDERED: DEXTROSE 5%-NORMAL SALINE 1,000 ML IV ONE (18:54)
[2017-03-07 19:02] LABS: BAND NEUTROPHILS % (MANUAL) 1 % (3-5); BASOPHILS % (MANUAL) 0 % (0-2); EOSINOPHILS % (MANUAL) 0 % (0-6); LYMPHOCYTES % (MANUAL) 7 % (13-45); TOTAL CELLS COUNTED 100
[2017-03-07 19:04] LABS: ANISOCYTOSIS 2+; HYPOCHROMASIA SLIGHT; OVALOCYTES SLIGHT; POIKILOCYTOSIS SLIGHT; TARGET CELLS 1+; TEAR DROP CELLS SLIGHT
[2017-03-07 19:09] LABS: APPEARANCE,URINE CLOUDY; BILIRUBIN,URINE NEGATIVE (NEGATIVE); GLUCOSE, URINE NEGATIVE (NEGATIVE); KETONES,URINE TRACE mg/dL (NEGATIVE); LEUKOCYTE ESTERASE,URINE SMALL (NEGATIVE); NITRITE,URINE NEGATIVE (NEGATIVE); PROTEIN,URINE NEGATIVE (NEGATIVE); UROBILINOGEN,URINE NEGATIVE mg/dL (<2.0)
--- NOTE | 2017-03-07 22:13 | EKG REPORT ---
SEVERITY:- ABNORMAL ECG - ATRIAL FIBRILLATION LOW VOLTAGE IN FRONTAL LEADS NONSPECIFIC T ABNORMALITIES, LATERAL LEADS : Confirmed by: Dayna Montes MD 07-Mar-2017 22:13:16
[2017-03-07 23:53] LABS: ADD ON TESTING BLD IN LAB ACKNOWLEDGE
[2017-03-08 00:11] LABS: MAGNESIUM 2.5 mg/dL (1.6-2.3)
[2017-03-08] MEDS ORDERED: DEXTROSE 40% GEL 15 GM TUBE PO PRN ×2 (01:19)
[2017-03-08] MEDS ORDERED: DEXTROSE 50%-WATER 25 GM/50 ML DISP.SYRIN IV PRN ×2 (01:19)
[2017-03-08] MEDS ORDERED: DEXTROSE 5%-1/2 NORMAL SALINE 1,000 ML IV PRN (01:19)
[2017-03-08] MEDS ORDERED: GLUCAGON,HUMAN RECOMB 1 MG INJ IM PRN (01:19)
[2017-03-08] MEDS ORDERED: ACETAMINOPHEN 650 MG SUPP.RECT PR PRN (01:19)
[2017-03-08] MEDS ORDERED: PHARMACY COMMUNICATION ORDER MC SCH (01:30)
--- NOTE | 2017-03-08 01:43 | PDOC H&P ---
History of Present Illness Admission Date/PCP: 03/07/17 20:01 PCP [facility] Patient complains of: weakness History of Present Illness: BUCK GAYLE is a 86 year old -Martiniquais female who presents to the emergency room for evaluation of above complaint. Patient has been discussed with emergency room physician who evaluated the patient. Patient is completely nonverbal, and is basically noninteractive with her surroundings and is able to provide no history whatsoever in terms of acute or chronic events, review of systems, personal habits, family history, etc. daughter is present at her side and is somewhat informative, although somewhat of a poor historian herself. Old inpatient records are reviewed. . Over the last month, family has noted patient to have increasing weakness and decreasing oral intake, in particular over the last 2-3 days. During this more recent time span, she's had minimal oral intake, with last urine output reportedly approximately 24 hours ago. Has occasionally been seen to be chewing on her lower lip, with occasional bleeding. Patient is bedbound, and family is waiting on a Elizabet lift. Daughter at bedside states that patient over the last 2-3 days "clamps her mouth shut" when family members try to feed her. Also makes a comment that " everything sticks in her throat." no fever, shaking chills, diarrhea or vomiting. Family note no other complaints at this point in time. No further information available this point in time. Laboratory results are listed in [facility] and are reviewed. X-ray summary results are listed below, with full report(s) reviewed. . EKG reviewed. And compared to a prior tracing from the of last month. Cardiology interpretation of atrial fibrillation, but there appear to be P waves in front of most complexes. Social history/personal habits: . Lives with daughter. Former smoker. No current use of tobacco. No history of alcohol or illicit drug use. Allergies/adverse reactions are listed in [facility] and are reviewed. Home medications Home medications initially autopopulated into [employer] may not accurately reflect patient's true medications, dosages, and/or frequencies. behavioral health tech has reconciled medications. REVIEW OF SYSTEMS: See history and present illness. No further information available this point in time. PHYSICAL EXAMINATION: Neither height nor weight are recorded on the chart. Temperature 95.5. Pulse 71 and regular. 98% saturation on room air. Blood pressure 111/63. Respirations are 16 and unlabored. Daughter is present at her side. Frail almost emaciated elderly -Martiniquais female appearing approximately her stated age. Somnolent. Does not respond to trapezius pinch, but does grimace and withdraw slightly to nailbed pressure. Occasionally looks about briefly, but then falls back asleep. Again, basically noninteractive with her surroundings. Skin is warm and dry. No grossly obvious evidence of rash in areas of skin examined. No subcutaneous nodules palpated. Per emergency room M.D., sacral decubitus is noted; please see his notes regarding same. There is a clean dry opaque adherent dressing over her right heel; dressing is left in place. ENT: Hearing can't be adequately evaluated due to her current status. No Franklin sign. Eyes: No scleral icterus. Pupils equal and reactive to light at 4 mm. [place] conjunctivae. No raccoon eyes. Neck is nontender to palpation. Midline trachea. No palpable thyroid nodule mass enlargement or tenderness. Lymphatic: No palpable cervical or clavicular nodes. Neck and lymphatic exams limited by patient body habitus. Psychiatric: Cannot be adequately evaluated due to her current status. See history and present illness. Lungs: Auscultation reveals clear and equal breath sounds bilaterally. No use of accessory respiratory muscles. Cardiovascular: Heart regular rate and rhythm, without gallop murmur or rub. No carotid or abdominal aortic bruits. No ankle or pedal edema. Faintly palpable right dorsalis pedis and left posterior tibial pulses. Abdomen: soft, slightly distended nontender with positive bowel sounds. Unable to adequately evaluate abdomen for masses or organomegaly due to distention. Extremities: Feet are warm and dry. No calf tenderness to compression. Significant lower extremity muscle atrophy. No grossly obvious visual evidence of calf swelling. Gentle manipulation of lower extremities fails to reveal any obvious evidence of injury or instability to knees hips or ankles. Neurologic: Patellar reflexes absent. Absent Babinski. Light touch can't be adequately determined due to her current status. Past Medical History Past Medical History: Patient not able to provide any information whatsoever concerning her past medical history. Information obtained from old records and daughter at bedside. Cardiac Medical History: Reports: Hypertension Denies: Congestive Heart Failure, Coronary Artery Disease, DVT, Myocardial Infarction, Hyperlipidema, Pulmonary Embolism Pulmonary Medical History: Denies: Asthma, Chronic Obstructive Pulmonary Disease (COPD) EENT Medical History: Reports: Eyes - Wears glasses, Throat - See history and present illness, 03/08/2017. Neurological Medical History: Denies: Hemorrhagic CVA, Ischemic CVA, Seizures Endocrine Medical History: Denies: Diabetes Mellitus Type 1, Diabetes Mellitus Type 2, Hyperthyroidism, Hypothyroidism Renal/ Medical History: Reports: Other - Occasional UTI. GI Medical History: Reports: Gastroesophageal Reflux Disease Denies: Cirrhosis, Hepatitis, Peptic Ulcer Disease Musculoskeltal Medical History: Denies: Arthritis Skin Medical History: Reports: Other - Sacral decubitus ulcer. Psychiatric Medical History: Denies: Alcohol Dependency, Depression, General Anxiety Disorder, Substance Abuse, Tobacco Dependency Hematology: Reports: None Infectious Medical History: Denies: Hepatitis B, Hepatitis C Past Surgical History Past Surgical History: Reports: Orthopedic Surgery - R hip, L hip Social History Information Source: Emergency Med Personnel, [facility] Records Lives with: Family Smoking Status: Former Smoker Frequency of Alcohol Use: None Hx Recreational Drug Use: No Drugs: None Hx Prescription Drug Abuse: No - Advance Directive Resuscitation Status: Do Not Resuscitate Surrogate healthcare decision maker:: Daughter greg Gallardo, patient's designated surrogate health care decision maker, with whom I had telephone conversation at 12:50 AM, 03/08/2017. Implications of DO NOT RESUSCITATE/DO NOT INTUBATE status discussed with Ms. Gallardo, with other daughter present at bedside. Discussed in layperson's terms. Implications understood. Ms. Gallardo is the health care decision maker. Ms. Gallardo' conversation is lucid and appropriate. Ms. Gallardo desires DO NOT RESUSCITATE/DO NOT INTUBATE status. Will honor her wishes. Family History Family History: Reviewed & Not Pertinent Parental Family History Reviewed: Yes - cause of parents' deaths uncertain Children Family History Reviewed: Yes - Son with cancer. Sibling(s) Family History Reviewed.: Yes - 90-year-old brother with "typical old age problems." Medication/Allergy Home Medications: Lisinopril [Prinivil] 20 mg PO DAILY 03/07/17 Metoprolol Tartrate [Lopressor 50 mg Tablet] 50 mg PO Q12 03/07/17 Omeprazole 20 mg PO DAILY 03/07/17 Oxybutynin Chloride [Ditropan 5 mg Tablet] 5 mg PO Q12 03/07/17 Allergies/Adverse Reactions: Penicillins Allergy (Verified 02/26/17 09:31) Sulfa (Sulfonamide Antibiotics) Allergy (Verified 02/26/17 09:31) aspirin [Aspirin] Adverse Reaction (Verified 02/26/17 09:31) Physical Exam Vital Signs: Temp Pulse Resp BP Pulse Ox 95.5 F L 13 111/63 03/08/17 00:01 03/07/17 19:01 03/08/17 00:01 Results Impressions: Chest X-Ray 03/07/17 16:48 IMPRESSION: NO ACUTE RADIOGRAPHIC FINDING IN THE CHEST. Assessment & Plan - Diagnosis (1) DNR (do not resuscitate) Is this a current diagnosis for this admission?: Yes (2) Abnormal EKG Is this a current diagnosis for this admission?: Yes (3) Abnormal urinalysis Is this a current diagnosis for this admission?: YesPlan: Due to hypothermia, will continue antibiotics, in the form of aztreonam. (4) Hypothermia Qualifiers: Encounter type: initial encounter Qualified Code(s): T68.XXXA - Hypothermia, initial encounter Is this a current diagnosis for this admission?: YesPlan: Warming instructions and temperature goal entered into orders. (5) Anemia Qualifiers: Anemia type: unspecified type Qualified Code(s): D64.9 - Anemia, unspecified Is this a current diagnosis for this admission?: YesPlan: Likely anemia of chronic disease, at least partly.Follow-up CBC with differential. No need for transfusion at present time. (6) Decubitus ulcer of heel Qualifiers: Pressure ulcer stage: unspecified pressure ulcer stage Laterality: right Qualified Code(s): L89.619 - Pressure ulcer of right heel, unspecified stage Is this a current diagnosis for this admission?: YesPlan: Innovative mattress. Turn every 2 hours. Dietary consult. Surgery consult. (7) Decubitus ulcer of sacral area Qualifiers: Pressure ulcer stage: unspecified pressure ulcer stage Qualified Code(s): L89.159 - Pressure ulcer of sacral region, unspecified stage Is this a current diagnosis for this admission?: YesPlan: As above. (8) Failure to thrive Qualifiers: Failure to thrive age range: in adult Qualified Code(s): R62.7 - Adult failure to thrive Is this a current diagnosis for this admission?: YesPlan: Hospice consult. Speech therapy consult. Knee high SCDs for DVT prophylaxis, along with subcutaneous heparin. Impression and plans were discussed with 2 daughters, who concur. Time spent in evaluation and management of patient: 61 minutes. - Inpatient Certification Based on my medical assessment, after consideration of the patient's comorbidities, presenting symptoms, or acuity I expect that the services needed warrant INPATIENT care.: Yes I certify that my determination is in accordance with my understanding of Medicare's requirements for reasonable and necessary INPATIENT services [42 CFR 412.3e].: Yes Medical Necessity: Significant Comorbidiites Make Outpatient Treatment Too Risky , Need For IV Fluids, Need for IV Antibiotics, Risk of Complication if Not Cared For in Hospital Post Hospital Care: D/C or Transfer Summary
[2017-03-08 02:13] VITALS: BP 105/57
[2017-03-08] MEDS ORDERED: AZTREONAM 1 GM in DEXTROSE 5%-WATER 50 ML IV SCH (06:00)
[2017-03-08] MEDS ORDERED: AZTREONAM INJ 1 GM VIAL ONE (06:10)
[2017-03-08] MEDS ORDERED: HEPARIN SOD (PORCINE) 5,000 UNIT/ML 1 ML SYRINGE SUBCUT SCH (10:00)
[2017-03-09 08:00] LABS: HEMATOCRIT 24.8 % (36.0-47.0); HGB HCT DIFFERENCE -2.3; MEAN CORPUSCULAR HEMOGLOBIN 25.9 pg (27.0-33.4); MEAN CORPUSCULAR HGB CONC 30.3 g/dL (32.0-36.0); MEAN CORPUSCULAR VOLUME 86 fl (80-97); RED CELL DISTRIBUTION WIDTH 19.5 % (11.5-14.0); WHITE BLOOD COUNT 6.3 10^3/uL (4.0-10.5)
[2017-03-09 10:22] LABS: BASOPHILS % (MANUAL) 0 % (0-2); EOSINOPHILS % (MANUAL) 0 % (0-6); HEMOGLOBIN 7.5 g/dL (12.0-15.5); LYMPHOCYTES % (MANUAL) 4 % (13-45); NUCLEATED RED BLOOD CELLS 1 /100 WBC (0); TOTAL CELLS COUNTED 100
[2017-03-09 10:24] LABS: ANISOCYTOSIS 2+; POLYCHROMASIA SLIGHT; ROULEAUX 2+; TARGET CELLS 1+
--- NOTE | 2017-03-09 20:27 | DISCHARGE SUMMARY E ---
Discharge Summary NAME: BUCK GAYLE : 1930 AGE: 86Y ADMITTED: 03/08/2017 DISCHARGED: 03/08/2017 CODE STATUS: DO NOT RESUSCITATE/DO NOT INTUBATE. PRIMARY CARE PROVIDER: [facility]. DISCHARGE DIAGNOSES: 1. Failure to thrive. 2. Dehydration. 3. Failure to thrive. 4. Dehydration. 5. Iron deficiency anemia secondary to #1. 6. Urinary tract infection. 7. Dementia. 8. Hypothermia secondary to #1. 9. Gastroesophageal reflux disease. DISCHARGE MEDICATIONS: As per hospice: DIET: As tolerated. ACTIVITY: As tolerated. HISTORY OF PRESENT ILLNESS: The patient is an 86-year-old female with a past medical history of dementia and hypertension. The patient presented to the emergency department due to weakness. The patient is completely nonverbal and was uninteractive and was unable to provide any history in terms of eahnw-nc-gjpmvup events. However, history was obtained from the family. Over the past month the family has noted the patient has had increasing weakness, decreased oral intake and particularly over the past 2-3 days. The patient's last urine output had been approximately 24 hours prior. The patient had been noted to be chewing on her lip with occasional bleeding. According to daughter, the patient "clamped her mouth shut" when family members tried to feed her. There have no fevers, chills, diarrhea or vomiting. The patient is completely bedbound with a Elizabet lift. According to the family, for some time they have been trying to arrange hospice for the patient, but this has not been successful for them. The patient was also noted to have stage I sacral decubitus as well as a right heel decubitus, and the patient was referred to the hospitalist for admission and management. HOSPITAL COURSE: The patient was admitted to continuous telemetry unit. The patient was gently hydrated and her symptoms did improve. The patient did become more responsive but with hydration, the patient's hemoglobin did further shift and appears this is due to iron deficiency anemia. The patient did become more responsive but is overall generally debilitated. The family has elected to proceed with hospice care. Social work was consulted to arrange this and home hospice was able to be arranged at this time. The patient did have a urinalysis which was suggestive of possible UTI and the patient was started on Aztreonam; however, the patient had no cultural growth, therefore, would defer antibiotics for outpatient. I met with the patient's daughter who is present at bedside who is quite eager to return the patient to the home environment for hospice support. DIAGNOSTICS: Lab values are as follows: Hematology obtained on 03/08/2017: WBCs are 6.3, hemoglobin is 7.5, hematocrit 24.8, and platelet count is 363,000. Chemistry obtained on 03/07/2017: Sodium 143, potassium 4.1, chloride 101, carbon dioxide 32, BUN 34, creatinine 0.79, glucose 34, calcium is 10.6, magnesium is 2.5, lactic acid is 1.2. Microbiology: Blood cultures obtained on 03/08/2016 revealed no growth. Urine culture obtained on 03/07/2017 reveals no growth. PHYSICAL EXAMINATION: GENERAL: On examination, the patient is a frail, chronically ill-appearing 86-year-old female who is minimally responsive and does not appear to be in any acute distress. VITAL SIGNS: Temperature 96.2, pulse 85, respirations 12, blood pressure 105/57, oxygen saturation is 95% on room air. SKIN: Warm and dry. No rash, not diaphoretic. HEENT: Pupils are sluggishly reactive. Conjunctivae is pink. NECK: There is no JVP. CARDIOVASCULAR: Heart is regular. There is no murmur or rub. CHEST: Clear to auscultation symmetrical and unlabored. ABDOMEN: Soft, nontender, nondistended. BACK: No CVA tenderness or sacral edema. EXTREMITIES: No clubbing, cyanosis or edema. The patient has evidence of contracture. PSYCHIATRIC: Unable to fully assess. DISCHARGE PLANNING: The patient will be followed up this afternoon with the support of hospice. Further management and medication as per hospice protocol. Time spent on this discharge including assessment and plan, physical examination, attempt at patient education, family meeting, and resource alignment is 45 minutes. DICTATING PHYSICIAN: TAMEKA SPRAGUE NP [id number] PHY#: [id number] ID: [id number] JOB#: [id number] ACCT: [id number] cc:SHAWN BECK M.D., MICHAEL NP >
[2017-03-10 10:59] LABS: BLOOD UREA NITROGEN 36 mg/dL (7-20); CALCIUM 10.4 mg/dL (8.4-10.2); CHLORIDE 103 mmol/L (98-107); CREATININE RESULT 0.72 mg/dL (0.52-1.25); GLUCOSE 182 mg/dL (75-110); POTASSIUM 3.8 mmol/L (3.6-5.0)
[2017-03-10 11:00] LABS: ANION GAP 8 (5-19); CARBON DIOXIDE 33 mmol/L (22-30)
== END 2017-03-08 15:15 | disposition hospice, home (50) | DRG 641 ==
LOC: ER 15:37 → EH 20:01 → UNDOADMIN 20:01 → EH 03-08 01:19 → 4N 03-08 01:45
PROVIDERS: ADMIT Family Medicine; ATTEND Family Medicine
DX: E86.0 Dehydration (principal); N39.0 Urinary tract infection, site not specified; R62.7 Adult failure to thrive; D50.9 Iron deficiency anemia, unspecified; F03.90 Unspecified dementia, unspecified severity, without behavioral disturbance, psychotic disturbance, mood disturbance, and anxiety; R68.0 Hypothermia, not associated with low environmental temperature; I10 Essential (primary) hypertension; K21.9 Gastro-esophageal reflux disease without esophagitis; Z74.01 Bed confinement status; L89.151 Pressure ulcer of sacral region, stage 1; L89.611 Pressure ulcer of right heel, stage 1; Z87.891 Personal history of nicotine dependence; Z66 Do not resuscitate; Z88.0 Allergy status to penicillin; Z88.6 Allergy status to analgesic agent
CPT/HCPCS: 36415; 51702; 71010; 80048; 80053; 81001; 83605; 83735; 84443; 85025; 87040; 87086; 87088; 87186; 93005; 93010; 99285; J3490